=== PATIENT | female | born 1975 | race Caucasian/White ===

== ENCOUNTER 2021-02-27 14:04 | Outpatient (CLI) | payer BC, SELFPAY ==
--- NOTE | 2021-02-27 14:15 | MM_ITS ---
WS: [id number] BILATERAL DIGITAL SCREENING MAMMOGRAPHY WITH CAD CLINICAL INFORMATION: SCREEN HISTORY: Screening mammogram. No current complaints. COMPARISON: None. TECHNIQUE: Bilateral CC and MLO views. FINDINGS: The breasts are composed of heterogeneous fibroglandular density tissue, which can limit the detectio n of small underlying mass lesions. 1 or 2 punctate calcifications right breast. No suspicious mass, asymmetry, calcifications, or architectural distortion. No evidence of malignancy. MM/[id number] IMPRESSION: BI-RADS: 2-Benign FOLLOW UP: 1 Year Follow-up Recommend return to annual screening mammography.
== END 2021-02-27 14:05 | disposition home or self-care (01) ==
PROVIDERS: PCP Family Medicine; Visit Provider Family Medicine
DX: Z12.31 Encounter for screening mammogram for malignant neoplasm of breast (principal)
CPT/HCPCS: 77067

== ENCOUNTER 2024-04-13 11:43 | Outpatient (CLI) | payer BC, SELFPAY ==
--- NOTE | 2024-04-13 11:46 | MM_ITS ---
WS: [id number] Bilateral screening 3D tomosynthesis digital mammogram, 04/13/2024 Clinical Data: SCREENING Comparison: 02/27/2021 Findings: The breast parenchymal pattern shows heterogeneous density. No spiculated masses or clustered calcifi cations are seen. There are no secondary signs of carcinoma. MM/[id number] Impression: 1. Negative bilateral mammogram unchanged. 2. Recommend annual screening mammograms. BIRADS: 1-Negative FOLLOW UP: 1 Year Follow-up The CAD gas meter checker was used.
== END 2024-04-13 11:44 | disposition home or self-care (01) ==
LOC: RAD 11:44
PROVIDERS: PCP Family Medicine; Visit Provider Family Medicine
DX: Z12.31 Encounter for screening mammogram for malignant neoplasm of breast (principal)
CPT/HCPCS: 77063; 77067

== ENCOUNTER 2025-02-08 21:32 | Emergency (ER) | payer BC, OTHER, SELFPAY ==
[2025-02-08 21:34] VITALS: BP 113/66; PULSE 116; RESP 16; TEMP 36.6; O2SAT 98; BMI 21.6
[2025-02-09] LABS: Basophils # 0.1 10^3/uL (0.0-0.1); Basophils % 0.4 %; Eosinophils # 0.1 10^3/uL (0.0-0.8); Eosinophils % 0.4 %; Hematocrit 52.1 % (36-47); Lymphocytes # 1.8 10^3/uL (0.8-4.8); Lymphocytes % 6.2 %; Mean Corpuscular HGB Conc 33.4 g/dL (30-55); Mean Corpuscular Hemoglobin 30.4 pg (27-33); Mean Corpuscular Volume 90.9 fl (85-98); Mean Platelet Volume 9.8 fL (7.4-10.4); Monocytes # 1.9 10^3/uL (0.2-0.9); Monocytes % 6.4 %; Neutrophils # 25.34 10^3/uL (1.8-7.7); Neutrophils % 86.1 %; Nucleated Red Blood Cells % 0 %; Platelet Count 418 10^3/cmm (157-399); Red Blood Count 5.73 10^6/uL (3.85-5.65); Red Cell Distribution Width 14.4 % (12.1-15.1); White Blood Count 29.42 10^3/uL (3.29-11.43)
[2025-02-09 00:16] LABS: Fibrinogen 296 mg/dL (174-498)
[2025-02-09 00:18] LABS: Alanine Aminotransferase 17 U/L (0-33); Albumin Level 4.5 g/dL (3.5-5.2); Alkaline Phosphatase 87 U/L (35-105); Anion Gap 15.7 (5-19); Aspartate Amino Transferase 22 U/L (0-32); Blood Urea Nitrogen 14 mg/dL (6-20); Calcium 9.6 mg/dL (8.5-10.5); Carbon Dioxide 26 mmol/L (22-29); Chloride 100 mmol/L (98-107); Creatinine Clr Calc Pharmacy 82.2231; Globulin 3.9 g/dL (1.3-4.6); Glomerular Filtration Rate 88.9 mL/min (90-130); Glucose 172 mg/dL (65-115); Osmolality Calculated 291 mOsm/kg (285-295); Potassium 3.7 mmol/L (3.5-5.1); Sodium 138 mmol/L (136-145); Total Bilirubin 0.3 mg/dL (0.15-1.2); Total Protein 8.4 g/dL (6.6-8.7)
--- NOTE | 2025-02-09 00:26 | ED_ITS ---
Documented by User: JACKY Alford 02/09/25 01:12 HPI - Animal Bite 2 General: Chief Complaint: Animal Bite Stated Complaint: Copper head bite L ankle Time Seen by Provider: 02/09/25 00:07 Source: patient and family Mode of arrival: ambulatory Limitations: no limitations History of Present Illness: 49yo female presents with significant ot her for evaluation after a copperhead bite to the left foot/ankle area. They report the bite occurred at 2115 this evening. Significant other states he attempted to catch the snake, but was unable. He believes it was a juvenile as the tail was haywood. Reports she did have a half of a Percocet 5?3 25 just prior to arrival. She also had 2 Benadryl this evening as she typically takes them to go to sleep. Patient states she is having nausea and generally feeling uncomfortable, but is not having significant pain. She denies any other concerns at this time Associated symptoms: Deny chills, fever(s) or headache(s) Related Data Previous Rx's ?Medication ?Instructions ?Recorded cephalexin 500 mg capsule 500 mg PO BID 7 days #14 cap s 02/09/25 oxycodone-acetaminophen 5 mg-325 1 tab PO Q8H PRN pain #30 tabs 02/09/25 mg tablet (Endocet) Allergies Allergy/AdvReac Type Severity Reaction Status Date / Time Penicillins Allergy Unknown Verified 02/08/25 21:42 Review of Systems 2 Const: Denies: fever(s), chills or body aches Card: Denies: chest pain Resp: Denies: dyspnea GI: Reports: nausea; Denies: vomiting Musc: Reports: extremity pain (left foot/ankle) and extremity swelling (left foot/ankle) Neuro: Denies: headache(s) Physical Exam 2 Const: COMMON NORMALS: no acute distress, patient oriented x3, healthy appearing and alert GENERAL APPEARANCE: cooperative O RIENTATION/CONSCIOUSNESS: Yes awake OTHER: Patient is laying reclined on the stretcher in no acute distress. She is interactive with exam appropriately. History is provided by significant other at bedside HENMT: COMMON NORMALS: normocephalic HEAD & SCALP: normocephalic Chest: CHEST: Yes Symmetrical chest wall rise Resp: COMMON NORMALS: normal respiratory effort EFFORT & INSPECTION: Yes able to speak in complete sentences Cardio: COMMON NORMALS: regular rate and regular rhythm RATE: regular rate RHYTHM: regular rhythm Extremity: COMMON NORMALS: full ROM and capillary refill normal LEFT LOWER EXTREMITY: Yes foot & digits Left foot and digits: Yes inspection (Puncture wound lateral aspect of heel, swelling, ecchymosis ), Yes palpation (Tenderness to palpation), Yes ROM (+movement toes) and Yes neurovascular exam (Sensation intact) OTHER: Swelling and ecchymosis extends up the lateral foot to the ankle area. Small amount of redness extending up the lateral aspect of the left lower leg. Pedal pulse 2+, capillary refill < 3 sec Neuro: COMMON NORMALS: patient oriented x3 SENSORIUM/ORIENTATION: Yes alert Psych: ATTITUDE: Yes calm Course 2 Vital Signs: Vital signs: Vital Signs Temperature 97.9 F 02/08/25 21:34 Pulse Rate 98 02/09/25 03:46 Respiratory Rate 18 02/09/25 03:46 Blood Pressure 111/81 02/09/25 03:46 Pulse Oximetry 96 02/09/25 03:46 Oxygen Delivery Me thod Room Air 02/09/25 01:00 MDM - Animal Bite Medical Decision Making 49yo female presents with significant other for evaluation after a copperhead bite to the left foot/ankle area. They report the bite occurred at 2114 this evening. Patient did take 2 Benadryl prior to the bite for sleeping purposes and half of a Percocet 5?3 25 after the bite. Patient is nontoxic in appearance. Vital signs are stable. Leukocytosis noted with a white blood cell count of 29.42. No thrombocytopenia noted. Fibrinogen is noted to be in the normal range of 296. Reexam at 00 30 with no significant progression of the swelling, erythema, and ecchymosis from time of marking after triage. Tetanus updated. Ondansetron provided. Will continue to observe patient for any worsening symptoms. Dr. Winston to assume care due to change of shift. Medical Records I reviewed the patient's medical records. Lab Data I reviewed the patient's lab results. 02/08/25 23:55 02/08/25 23:55 Laboratory Results WBC 29.42 10^3/uL (3.29-11.43) H 02/08/25 23:55 RBC 5.73 10^6/uL (3.85-5.65) H 02/08/25 23:55 Hgb 17.40 g/dL (11.27-16.99) H 02/08/25 23:55 Hct 52.1 % (36-47) H 02/08/25 23:55 MCV 90.9 fl (85-98) 02/08/25 23:55 MCH 30.4 pg (27-33) 02/08/25 23:55 MCHC 33.4 g/dL (30-55) 02/08/25 23:55 RDW 14.4 % (12.1-15.1) 02/08/25 23:55 Plt Count 418 10^3/cmm (157-399) H 02/08/25 23:55 MPV 9.8 fL (7.4-10.4) 02/08/25 23:55 Neut % (Auto) 86.1 % 02/08/25 23:55 Lymph % (Auto) 6.2 % 02/08/25 23:55 Sullivan % (Auto) 6.4 % 02/08/25 23:55 Eos % (Auto) 0.4 % 02/08/25 23:55 Baso % (Auto) 0.4 % 02/08/25 23:55 Neut # (Auto) 25.34 10^3/uL (1.8-7.7) H 02/08/25 23:55 Lymph # (Auto) 1.8 10^3/uL (0.8-4.8) 02/08/25 23:55 Sullivan # (Auto) 1.9 10^3/uL (0.2-0.9) H 02/08/25 23:55 Eos # (Auto) 0.1 10^3/uL (0.0-0.8) 02/08/25 23:55 Baso # (Auto) 0.1 10^3/uL (0.0-0.1) 02/08/25 23:55 Nucleated RBC % (auto) 0 % 02/08/25 23: Nucleated RBCs # 0.0 /100WBC 02/08/25 23:55 PT 13.20 SECONDS (12.1-14.9) 02/08/25 23:55 INR 0.94 (0.8-1.2) 02/08/25 23:55 APTT 29.0 SECONDS (23.9-36.7) 02/08/25 23:55 Fibrinogen 296 mg/dL (174-498) 02/08/25 23:55 Sodium 138 mmol/L (136-145) 02/08/25 23:55 Potassium 3.7 mmol/L (3.5-5.1) 02/08/25 23:55 Chloride 100 mmol/L (98-107) 02/08/25 23:55 Carbon Dioxide 26 mmol/L (22-29) 02/08/25 23:55 Anion Gap 15.7 (5-19) 02/08/25 23:55 BUN 14 mg/dL (6-20) 02/08/25 23:55 Creatinine 0.7 mg/dL (0.5-0.9) 02/08/25 23:55 GFR Calculation 88.9 mL/min (90-130) L 02/08/25 23:55 Glucose 172 mg/dL (65-115) H 02/08/25 23:55 Calculated Osmolality 291 mOsm/kg (285-295) 02/08/25 23:55 Calcium 9.6 mg/dL (8.5-10.5) 02/08/25 23:55 Total Bilirubin 0.3 mg/dL (0.15-1.2) 02/08/25 23:55 AST 22 U/L (0-32) 02/08/25 23:55 ALT 17 U/L (0-33) 02/08/25 23:55 Alkaline Phosphatase 87 U/L (35-105) 02/08/25 23:55 Total Protein 8.4 g/dL (6.6-8.7) 02/08/25 23:55 Albumin 4.5 g/dL (3.5-5.2) 02/08/25 23:55 Globulin 3.9 g/dL (1.3-4.6) 02/08/25 23:55 No radiology studies performed this visit Discharge Plan Discharge Patient Disposition: Home Clinical Impression: Snake bite Qualifiers: Encounter type: initial encounter Qualified Code(s): W59.11XA - Bitten by nonvenomous snake, initial encounter Condition: Stable Prescriptions: New oxycodone-acetaminophen [Endocet] 5-325 mg tablet 1 tab PO Q8H PRN (Reason: pain) Qty: 30 0RF cephalexin 500 mg capsule 500 mg PO BID 7 Days Qty: 14 0RF Discharge Orders: Discharge ED (Routine); Ordered 02/09/25 Ordered By: Rubén Winston Referrals: Yobany Mathews MD [Primary Care Provider, Family Practice] Discharge Diet: Advance as tolerated Discharge Activity: Increase activity as tolerated Patient Instructions: Snake Bite (ED) Stand Alone Forms: Work/School Release Print Language: Montserratian Coding Level of Care Code ED Bioinformatics Support Specialist for Chg Fwd Documented by User: Rubén Winston MD 02/09/25 05:13 HPI - Animal Bite 2 General: Chief Complaint: Animal Bite Stated Complaint: Copper head bite L ankle Time Seen by Provider: 02/09/25 00:07 Related Data Previous Rx's ?Medication ?Instructions ?Recorded cephalexin 500 mg capsule 500 mg PO BID 7 days #14 cap s 02/09/25 oxycodone-acetaminophen 5 mg-325 1 tab PO Q8H PRN pain #30 tabs 02/09/25 mg tablet (Endocet) Allergies Allergy/AdvReac Type Severity Reaction Status Date / Time Penicillins Allergy Unknown Verified 02/08/25 21:42 Course 2 Vital Signs: Vital signs: Vital Signs Temperature 97.9 F 02/08/25 21:34 Pulse Rate 98 02/09/25 03:46 Respiratory Rate 18 02/09/25 03:46 Blood Pressure 111/81 02/09/25 03:46 Pulse Oximetry 96 02/09/25 03:46 Oxygen Delivery Me thod Room Air 02/09/25 01:00 MDM - Animal Bite Medical Decision Making 49yo female presents with significant other for evaluation after a copperhead bite to the left foot/ankle area. They report the bite occurred at 2115 this evening. Patient did take 2 Benadryl prior to the bite for sleeping purposes and half of a Percocet 5?3 25 after the bite. Patient is nontoxic in appearance. Vital signs are stable. Leukocytosis noted with a white blood cell count of 29.42. No thrombocytopenia noted. Fibrinogen is noted to be in the normal range of 296. Reexam at 00 30 with no significant progression of the swelling, erythema, and ecchymosis from time of marking after triage. Tetanus updated. Ondansetron provided. Will continue to observe patient for any worsening symptoms. Dr. Winston to assume care due to change of shift. Dr Winston addendum: Patient observed for another several hours during which time vital signs remained stable. Swelling remains localized without spread beyond 2 joints. I suspect localized swelling and there is no evidence of systemic involvement. INR, fibrinogen, and vital signs are all stable. Pain is well- controlled at this point. She will be discharged home in stable and improved condition with a short course of pain medicine. She knows that she is always welcome back in the emergency department if needed before then. We also spoke about how she may Develop cellulitis and I wrote for Keflex should this occur but she will not take it unless she shows clear signs of cellulitis. Lab Data 02/08/25 23:55 02/08/25 23:55 Laboratory Results WBC 29.42 10^3/uL (3.29-11.43) H 02/08/25 23:55 RBC 5.73 10^6/uL (3.85-5.65) H 02/08/25 23:55 Hgb 17.40 g/dL (11.27-16.99) H 02/08/25 23:55 Hct 52.1 % (36-47) H 02/08/25 23:55 MCV 90.9 fl (85-98) 02/08/25 23:55 MCH 30.4 pg (27-33) 02/08/25 23:55 MCHC 33.4 g/dL (30-55) 02/08/25 23:55 RDW 14.4 % (12.1-15.1) 02/08/25 23:55 Plt Count 418 10^3/cmm (157-399) H 02/08/25 23:55 MPV 9.8 fL (7.4-10.4) 02/08/25 23:55 Neut % (Auto) 86.1 % 02/08/25 23:55 Lymph % (Auto) 6.2 % 02/08/25 23:55 Sullivan % (Auto) 6.4 % 02/08/25 23:55 Eos % (Auto) 0.4 % 02/08/25 23:55 Baso % (Auto) 0.4 % 02/08/25 23:55 Neut # (Auto) 25.34 10^3/uL (1.8-7.7) H 02/08/25 23:55 Lymph # (Auto) 1.8 10^3/uL (0.8-4.8) 02/08/25 23:55 Sullivan # (Auto) 1.9 10^3/uL (0.2-0.9) H 02/08/25 23:55 Eos # (Auto) 0.1 10^3/uL (0.0-0.8) 02/08/25 23:55 Baso # (Auto) 0.1 10^3/uL (0.0-0.1) 02/08/25 23:55 Nucleated RBC % (auto) 0 % 02/08/25 23:55 Nucleated RBCs # 0.0 /100WBC 02/08/25 23:55 PT 13.20 SECONDS (12.1-14.9) 02/08/25 23:55 INR 0.94 (0.8-1.2) 02/08/25 23:55 APTT 29.0 SECONDS (23.9-36.7) 02/08/25 23:55 Fibrinogen 296 mg/dL (174-498) 02/08/25 23:55 Sodium 138 mmol/L (136-145) 02/08/25 23:55 Potassium 3.7 mmol/L (3.5-5.1) 02/08/25 23:55 Chloride 100 mmol/L (98-107) 02/08/25 23:55 Carbon Dioxide 26 mmol/L (22-29) 02/08/25 23:55 Anion Gap 15.7 (5-19) 02/08/25 23:55 BUN 14 mg/dL (6-20) 02/08/25 23:55 Creatinine 0.7 mg/dL (0.5-0.9) 02/08/25 23:55 GFR Calculation 88.9 mL/min (90-130) L 02/08/25 23:55 Glucose 172 mg/dL (65-115) H 02/08/25 23:55 Calculated Osmolality 291 mOsm/kg (285-295) 02/08/25 23:55 Calcium 9.6 mg/dL (8.5-10.5) 02/08/25 23:55 Total Bilirubin 0.3 mg/dL (0.15-1.2) 02/08/25 23:55 AST 22 U/L (0-32) 02/08/25 23:55 ALT 17 U/L (0-33) 02/08/25 23:55 Alkaline Phosphatase 87 U/L (35-105) 02/08/25 23:55 Total Protein 8.4 g/dL (6.6-8.7) 02/08/25 23:55 Albumin 4.5 g/dL (3.5-5.2) 02/08/25 23:55 Globulin 3.9 g/dL (1.3-4.6) 02/08/25 23:55 Discharge Plan Discharge Patient Disposition: Home Clinical Impression: Snake bite Qualifiers: Encounter type: initial encounter Qualified Code(s): W59.11XA - Bitten by nonvenomous snake, initial encounter Condition: Stable Prescriptions: New oxycodone-acetaminophen [Endocet] 5-325 mg tablet 1 tab PO Q8H PRN (Reason: pain) Qty: 30 0RF cephalexin 500 mg capsule 500 mg PO BID 7 Days Qty: 14 0RF Discharge Orders: Discharge ED (Routine); Ordered 02/09/25 Ordered By: Rubén Winston Referrals: Yobany Mathews MD [Primary Care Provider, [facility]] Discharge Diet: Advance as tolerated Discharge Activity: Increase activity as tolerated Patient Instructions: Snake Bite (ED) Stand Alone Forms: Work/School Release Print Language: Montserratian Coding Level of Care Code ED Bioinformatics Support Specialist for Robert Warner
[2025-02-09 01:00] VITALS: BP 96/61; PULSE 79; RESP 14; O2SAT 95
[2025-02-09 01:29] LABS: INR 0.94 (0.8-1.2)
[2025-02-09] MEDS: ondansetron hcl ODT 4 mg Tab PO (01:42)
[2025-02-09] MEDS: tetanus-dipt-pertussis 0.5 mL SDV IM (01:42)
[2025-02-09 02:33] VITALS: RESP 18
[2025-02-09] MEDS: morphine 4 mg/mL SDV 1 mL IVP (02:33)
[2025-02-09 03:14] VITALS: BP 112/68; PULSE 94; O2SAT 94
[2025-02-09 03:46] VITALS: BP 111/81; PULSE 98; RESP 18; O2SAT 96
[2025-02-09] MEDS: oxyCODONE-APAP 5-325 mg Tablet 1 TAB PO (03:46)
== END 2025-02-09 03:29 | disposition home or self-care (01) ==
PROVIDERS: Nurse Practitioner; Emergency Provider Student in an Organized Health Care Education/Training Program; PCP Family Medicine
DX: S91.052A Open bite, left ankle, initial encounter (principal); W59.11XA Bitten by nonvenomous snake, initial encounter
CPT/HCPCS: 36415; 80053; 85025; 85384; 85610; 85730; 90715; 96374; 99284; J2270; J9999; Q0162